=== PATIENT | male | born 1985 | race Caucasian/White ===

== ENCOUNTER 2017-11-28 04:24 | Emergency (ER) | payer MEDICAID, OTHER ==
[~2017-11-28] VITALS: Ht 175.3 cm; Wt 86.2 kg
[2017-11-28 04:28] VITALS: BP_SYST 144
[2017-11-28] MEDS ORDERED: KETOROLAC TROMETHAMINE 30 MG VIAL IM ONE (05:00)
[2017-11-28 05:45] VITALS: BP_SYST 138
== END 2017-11-28 05:45 | disposition home or self-care (01) ==
LOC: SED 04:24
DX: S60.221A Contusion of right hand, initial encounter (principal); F17.200 Nicotine dependence, unspecified, uncomplicated; W22.8XXA Striking against or struck by other objects, initial encounter; Y93.89 Activity, other specified; Y92.89 Other specified places as the place of occurrence of the external cause; Y99.8 Other external cause status
CPT/HCPCS: 73130; 96372; 99284; J1885

== ENCOUNTER 2017-12-24 20:29 | Emergency (ER) | payer MEDICAID ==
[~2017-12-24] VITALS: Ht 175.3 cm; Wt 77.1 kg
[2017-12-24 20:45] VITALS: BP_SYST 126
[2017-12-24] MEDS ORDERED: DIPH-TET-PERTUS Vaccine 0.5 ML VIAL (ADACEL) I.M. ONE (21:15)
[2017-12-24] MEDS ORDERED: CEPHALEXIN 500 MG CAPSULE PO ONE (21:15)
[2017-12-24] MEDS ORDERED: SULFAMETHOXAZOLE/TRIMETHOPR DS 1 TABLET PO ONE (21:15)
[2017-12-24] MEDS ORDERED: KETOROLAC TROMETHAMINE 60 MG/2 ML VIAL IM ONE (21:15)
[2017-12-24 22:55] VITALS: BP_SYST 120
== END 2017-12-24 22:55 | disposition home or self-care (01) ==
LOC: SED 20:29
DX: S61.432A Puncture wound without foreign body of left hand, initial encounter (principal); W31.0XXA Contact with mining and earth-drilling machinery, initial encounter; Y93.89 Activity, other specified; Y92.89 Other specified places as the place of occurrence of the external cause; Y99.8 Other external cause status
CPT/HCPCS: 73130; 90471; 90715; 96372; 99284; J1885

== ENCOUNTER 2020-01-19 16:23 | Emergency (ER) | payer MEDICAID ==
[~2020-01-19] VITALS: Ht 175.3 cm; Wt 83.9 kg
[2020-01-19 16:23] VITALS: BP_SYST 131
--- NOTE | 2020-01-19 16:23 | NUR ---
BROUGHT BACK TO BED #7 AND TRIAGED. REPORT GIVEN TO COOPER
--- NOTE | 2020-01-19 16:30 | NUR ---
Pt came to ER after R FA swollen and red pain rated 6/10. 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 Pt currently in [facility], no distress.
--- NOTE | 2020-01-19 16:40 | NUR ---
ER at bedside examining patient.
[2020-01-19] MEDS ORDERED: CEFAZOLIN 2 GM IVPB PREMIX 50 ML IV ONE (17:00)
[2020-01-19] MEDS ORDERED: LIDOCAINE 1% 10 MG/ML, 20 ML MDV INJ ONE (17:15)
[2020-01-19 17:19] LABS: BASOPHILS % (AUTO) 0.4 % (0.0-2.0); EOSINOPHILS # (AUTO) 0.1 K/uL (0.0-0.4); EOSINOPHILS % (AUTO) 0.9 % (0.0-4.0); HEMATOCRIT 39.1 % (36-54); HEMOGLOBIN 13.1 g/dL (14.0-18.0); LYMPHOCYTES # (AUTO) 2.5 K/uL (1.0-5.5); LYMPHOCYTES % (AUTO) 23.2 % (20.5-51.5); MEAN CORPUSCULAR HEMOGLOBIN 30 pg (27-31); MEAN CORPUSCULAR HGB CONC 34 % (32-36); MEAN CORPUSCULAR VOLUME 89 fL (79.0-98.0); MONOCYTES # (AUTO) 0.5 K/uL (0.0-1.0); MONOCYTES % (AUTO) 5.1 % (1.7-9.3); NEUTROPHILS # (AUTO) 7.6 K/uL (1.8-7.7); NEUTROPHILS % (AUTO) 70.4 % (40.0-70.0); PLATELET COUNT (AUTO) 242 K/uL (130-430); RED BLOOD CELL COUNT(AUTO) 4.42 MIL/uL (4.2-6.2); RED CELL DISTRIBUTION WIDTH 13.2 % (9.0-15.0); WHITE BLOOD COUNT (AUTO) 10.8 K/uL (4.8-10.8)
--- NOTE | 2020-01-19 17:30 | NUR ---
at bedside performing I&D
[2020-01-19 17:32] LABS: CALCIUM 8.6 mg/dL (8.4-11.0); CHLORIDE 102 mmol/L (98-107); CREATININE 0.88 mg/dL (0.55-1.30); GLUCOSE 98 mg/dL (70-99); POTASSIUM 3.7 mmol/L (3.5-5.1); SODIUM SERUM 134 mmol/L (136-145); UREA NITROGEN, BLOOD 9 mg/dL (8-21)
[2020-01-19 17:36] LABS: ANION GAP < 3 (5-15); GFR AFRICAN AMERICAN 127 mL/min (>90)
[2020-01-19 17:40] LABS: ALANINE AMINOTRANSFERASE 41 U/L (12-78); ALBUMIN 3.4 g/dL (3.4-4.8); ASPARTATE AMINOTRANSFERASE 21 U/L (10-37); TOTAL BILIRUBIN 0.5 mg/dL (0.0-1.0)
[2020-01-19 18:51] VITALS: BP_SYST 131
--- NOTE | 2020-01-19 18:52 | NUR ---
Patient given written and verbal discharge instructions and verbalizes understanding. ER MD discussed with patient the results and treatment provided. Patient in stable condition. ID arm band removed. IV catheter removed intact and dressing applied, no active bleeding. Rx of Keflex and Bactrim given. Patient educated on pain management and to follow up with PMD. Pain Scale 0/10. Opportunity for questions provided and answered. Medication side effect fact sheet provided.
== END 2020-01-19 18:51 | disposition home or self-care (01) ==
LOC: SED 16:23
DX: L02.413 Cutaneous abscess of right upper limb (principal)
CPT/HCPCS: 10060; 36415; 73080; 73090; 80053; 85025; 87040; 87070; 87075; 96365; 99284; J0690; J2001

== ENCOUNTER 2020-08-24 14:05 | Emergency (ER) | payer MEDICAID, SELFPAY ==
[~2020-08-24] VITALS: Ht 175.3 cm; Wt 83.9 kg
[2020-08-24 14:17] VITALS: BP_SYST 133
[2020-08-24 15:28] VITALS: BP_SYST 133
== END 2020-08-24 15:28 | disposition home or self-care (01) ==
LOC: SED 14:05
DX: G89.29 Other chronic pain (principal); M25.512 Pain in left shoulder
CPT/HCPCS: 73030; 99283